=== PATIENT | male | born 1965 | race Hispanic/Latino ===

== ENCOUNTER 2022-02-26 14:35 | Inpatient (IN) | payer SELFPAY ==
[2022-02-26] MEDS ORDERED: Cefepime 2 GM VIAL ONE (18:12)
[2022-02-26] MEDS ORDERED: Morphine 4 MG/ML VIAL ONE (18:39)
[2022-02-26] MEDS ORDERED: Acetaminophen 500 MG TAB ONE (18:39)
[2022-02-26] MEDS ORDERED: Ondansetron PF 4 MG/2 ML Vial ONE (18:39)
[2022-02-26 18:44] LABS: #Eosinphils 0.2 thou/uL (0.0-0.7); #Lymphocytes 1.5 thou/uL (1.20-3.40); #Monocytes 1.1 thou/uL (0.11-0.59); #Neutrophils 10.4 thou/uL (1.40-6.50); %Basophils 0.3 % (0.0-1.0); %Eosinophils 1.2 % (0.0-10.0); %Monocytes 8.1 % (0.0-10.0); %Neutrophils 79.4 % (42.0-75.0); Hemoglobin 14.2 g/dL (14.0-18.0); Mean Corpuscular HGB CONC 33.7 g/dL (32.0-36.0); Mean Corpuscular Hemoglobin 31.1 pg (27.0-31.0); Mean Corpuscular Volume 92.2 fL (78.0-98.0); Mean Platelet Volume 8.2 fL (7.4-10.4); Platelet Count 274 thou/uL (130-400); RBC Distribution Width 11.8 % (11.5-14.5); Red Blood Cell (RBC) Count 4.57 mill/uL (4.70-6.10); White Blood Cell (WBC) Count 13.2 thou/uL (4.8-10.8)
[2022-02-26] MEDS ORDERED: VANCOMYCIN 2 GRAM/500 ML BAG 2 GM in Premix Bag 1 BAG IVPB SCH (18:45)
[2022-02-26 19:06] LABS: ALT (SGPT) 8 U/L (8-55); AST (SGOT) 9 U/L (5-34); Albumin 3.9 g/dL (3.5-5.0); Alkaline Phosphatase 124 U/L (40-110); Anion Gap 16 mmol/L (10-20); BUN (Urea Nitrogen) 10 mg/dL (8.4-25.7); Bilirubin, Total 0.7 mg/dL (0.2-1.2); Calc. Creatinine Clearance 0 mL/min (70-130); Calcium 9.5 mg/dL (7.8-10.44); Carbon Dioxide 27 mmol/L (22-29); Chloride 95 mmol/L (98-107); Estimated GFR 102; Glucose 386 mg/dL (70-105); Potassium 3.9 mmol/L (3.5-5.1); Protein, Total 7.9 g/dL (6.0-8.3); Sodium 134 mmol/L (136-145)
[2022-02-26] MEDS ORDERED: Morphine 4 MG/ML VIAL SLOW IVP PRN (21:20)
[2022-02-26] MEDS ORDERED: Acetaminophen 325 MG TAB PO PRN (21:30)
[2022-02-26] MEDS ORDERED: Sodium Chloride 0.9% 1,000 ML IV SCH (21:30)
[2022-02-26] MEDS ORDERED: Ondansetron PF 4 MG/2 ML Vial IVP PRN (21:30)
[2022-02-26] MEDS ORDERED: Ondansetron ODT 4 MG TAB SL PRN (21:30)
[2022-02-26] MEDS ORDERED: Clindamycin/D5W 600 MG in Premix Bag 1 BAG IVPB SCH (22:00)
[2022-02-26 22:34] VITALS: BMI 23.0
[2022-02-26] MEDS ORDERED: Dextrose 50% Abboject 50 ML SYRINGE SLOW IVP PRN (23:50)
[2022-02-26] MEDS ORDERED: Acetaminophen 650 MG Suppository PR PRN (23:50)
[2022-02-26] MEDS ORDERED: Dextrose 5% in Water 1,000 ML IV PRN (23:50)
[2022-02-27 00:19] LABS: SARS-CoV-2 NAA Rapid Test Not Detected (NotDetected)
[2022-02-27] MEDS ORDERED: Piperacillin/Tazobactam 3.375 GM in Sodium Chloride 0.9% 100 ML IVPB SCH (01:30)
[2022-02-27 01:58] LABS: #Eosinphils 0.2 thou/uL (0.0-0.7); #Lymphocytes 1.5 thou/uL (1.20-3.40); #Monocytes 1.1 thou/uL (0.11-0.59); #Neutrophils 8.1 thou/uL (1.40-6.50); %Basophils 0.4 % (0.0-1.0); %Eosinophils 2.1 % (0.0-10.0); %Lymphocytes 13.8 % (21.0-51.0); %Monocytes 10.1 % (0.0-10.0); %Neutrophils 73.6 % (42.0-75.0); Hemoglobin 12.1 g/dL (14.0-18.0); Mean Corpuscular Hemoglobin 31.3 pg (27.0-31.0); Mean Corpuscular Volume 92.3 fL (78.0-98.0); Mean Platelet Volume 7.8 fL (7.4-10.4); Platelet Count 233 thou/uL (130-400); RBC Distribution Width 11.7 % (11.5-14.5); Red Blood Cell (RBC) Count 3.85 mill/uL (4.70-6.10); White Blood Cell (WBC) Count 11.1 thou/uL (4.8-10.8)
[2022-02-27 02:07] LABS: Hemoglobin A1c Greater than 14.0 % (4.0-6.0)
[2022-02-27 02:44] LABS: Anion Gap 14 mmol/L (10-20); BUN (Urea Nitrogen) 8 mg/dL (8.4-25.7); Calc. Creatinine Clearance 109 mL/min (70-130); Calcium 8.2 mg/dL (7.8-10.44); Carbon Dioxide 23 mmol/L (22-29); Chloride 102 mmol/L (98-107); Estimated GFR 109; Glucose 245 mg/dL (70-105); Potassium 3.5 mmol/L (3.5-5.1); Sodium 135 mmol/L (136-145)
[2022-02-27] MEDS: Sodium Chloride 0.9% 1,000 ML IV SCH ×3 (03:14→19:52)
[2022-02-27] MEDS: Piperacillin/Tazobactam 3.375 GM in Sodium Chloride 0.9% 100 ML IVPB SCH ×3 (05:32→22:56)
[2022-02-27] MEDS ORDERED: Cefepime 2 GM in Sodium Chloride 0.9% 100 ML IVPB SCH (06:00)
[2022-02-27] MEDS ORDERED: VANCOMYCIN 1.25 GM/250 ML BAG IVPB SCH (07:00)
[2022-02-27] MEDS: Vancomycin 1 GM in Premix Bag 1 BAG IVPB SCH ×2 (10:26→19:55)
[2022-02-27] MEDS ORDERED: fentaNYL Citrate/PF 100 MCG/2 ML SYRINGE ONE ×2 (15:12→15:30)
[2022-02-27] MEDS ORDERED: Magnevist 469MG/ML 20 ML VIAL ONE (15:32)
[2022-02-27] MEDS ORDERED: Ondansetron PF 4 MG/2 ML Vial ONE (15:33)
[2022-02-27] MEDS ORDERED: ePHEDrine 50 MG/ML VIAL ONE (15:33)
[2022-02-27] MEDS ORDERED: PROPOFOL 200 MG/20 ML VIAL ONE (15:33)
[2022-02-27] MEDS ORDERED: Bupivacaine/Epinephrine 0.25% 30 ML VIAL ONE (15:55)
[2022-02-27] MEDS ORDERED: Promethazine HCl 25 MG/ML VIAL IVPB PRN (16:23)
[2022-02-27] MEDS ORDERED: Promethazine HCl 25 MG/ML VIAL IM PRN (16:23)
[2022-02-27] MEDS ORDERED: Ondansetron HCl/PF 4 MG/2 ML Vial IVP PRN (16:23)
[2022-02-27] MEDS ORDERED: HYDROmorphone 2 MG/ML VIAL SLOW IVP PRN (16:23)
[2022-02-27] MEDS: HumaLOG 300 UNITS/3 ML VIAL SC PRN (17:50)
[2022-02-27] MEDS ORDERED: HYDROmorphone 0.5 MG/0.5 ML SYRINGE SLOW IVP PRN (20:19)
[2022-02-27] MEDS ORDERED: traMADol HCl 50 MG TAB PO PRN (20:20)
[2022-02-27] MEDS: HYDROcodone/Acetaminophen 7.5/325 mg Tablet PO PRN (20:56)
[2022-02-28] MEDS: HYDROcodone/Acetaminophen 7.5/325 mg Tablet PO PRN ×4 (03:46→20:52)
[2022-02-28] MEDS: Piperacillin/Tazobactam 3.375 GM in Sodium Chloride 0.9% 100 ML IVPB SCH ×3 (05:19→22:44)
[2022-02-28] MEDS: HumaLOG 300 UNITS/3 ML VIAL SC PRN ×2 (07:01→18:20)
[2022-02-28 07:26] LABS: #Eosinphils 0.4 thou/uL (0.0-0.7); #Lymphocytes 1.6 thou/uL (1.20-3.40); #Monocytes 0.9 thou/uL (0.11-0.59); #Neutrophils 8.8 thou/uL (1.40-6.50); %Basophils 0.3 % (0.0-1.0); %Eosinophils 3.5 % (0.0-10.0); %Lymphocytes 13.8 % (21.0-51.0); %Monocytes 7.7 % (0.0-10.0); %Neutrophils 74.6 % (42.0-75.0); Hemoglobin 11.7 g/dL (14.0-18.0); Mean Corpuscular HGB CONC 32.8 g/dL (32.0-36.0); Mean Corpuscular Hemoglobin 30.5 pg (27.0-31.0); Mean Corpuscular Volume 92.9 fL (78.0-98.0); Mean Platelet Volume 7.9 fL (7.4-10.4); Platelet Count 225 thou/uL (130-400); RBC Distribution Width 11.8 % (11.5-14.5); Red Blood Cell (RBC) Count 3.83 mill/uL (4.70-6.10); White Blood Cell (WBC) Count 11.8 thou/uL (4.8-10.8)
[2022-02-28 07:40] LABS: ALT (SGPT) 95 U/L (8-55); AST (SGOT) 117 U/L (5-34); Albumin 2.8 g/dL (3.5-5.0); Alkaline Phosphatase 259 U/L (40-110); Anion Gap 14 mmol/L (10-20); BUN (Urea Nitrogen) 7 mg/dL (8.4-25.7); Bilirubin, Total 0.9 mg/dL (0.2-1.2); Calc. Creatinine Clearance 111 mL/min (70-130); Calcium 8.4 mg/dL (7.8-10.44); Carbon Dioxide 28 mmol/L (22-29); Chloride 101 mmol/L (98-107); Estimated GFR 110; Globulin 3.2 g/dL (2.4-3.5); Glucose 248 mg/dL (70-105); Potassium 3.5 mmol/L (3.5-5.1); Sodium 139 mmol/L (136-145)
[2022-02-28] MEDS: VANCOMYCIN 1.25 GM/250 ML BAG 1.25 GM in Premix Bag 1 BAG IVPB SCH ×2 (11:03→18:21)
[2022-02-28] MEDS: Sodium Chloride 0.9% 1,000 ML IV SCH ×2 (11:07→19:30)
[2022-02-28] MEDS: Vancomycin 1 GM in Premix Bag 1 BAG IVPB SCH (11:07)
[2022-02-28] MEDS ORDERED: Dextrose 5% in Water 1,000 ML IV PRN (12:32)
[2022-02-28] MEDS ORDERED: Dextrose 50% Abboject 50 ML SYRINGE SLOW IVP PRN (12:32)
[2022-02-28 13:10] LABS: Hemoglobin A1c Greater than 14.0 % (4.0-6.0)
[2022-03-01] MEDS: Sodium Chloride 0.9% 1,000 ML IV SCH ×2 (04:00→16:34)
[2022-03-01] MEDS: VANCOMYCIN 1.25 GM/250 ML BAG 1.25 GM in Premix Bag 1 BAG IVPB SCH ×4 (04:00→20:05)
[2022-03-01] MEDS: HYDROcodone/Acetaminophen 7.5/325 mg Tablet PO PRN ×2 (04:32→16:37)
[2022-03-01] MEDS: Piperacillin/Tazobactam 3.375 GM in Sodium Chloride 0.9% 100 ML IVPB SCH ×3 (07:20→22:05)
[2022-03-01] MEDS: HumaLOG 300 UNITS/3 ML VIAL SC PRN ×3 (07:22→20:00)
[2022-03-01] MEDS ORDERED: glipiZIDE 5 MG TAB PO SCH (07:30)
[2022-03-01 08:48] LABS: Vancomycin, Trough 20.8 ug/mL
[2022-03-01 08:50] LABS: Cardiac Risk 4.6 (Less than 4.5)
[2022-03-02] MEDS: HumaLOG 300 UNITS/3 ML VIAL SC PRN ×4 (03:40→22:16)
[2022-03-02] MEDS: VANCOMYCIN 1.25 GM/250 ML BAG 1.25 GM in Premix Bag 1 BAG IVPB SCH ×3 (04:16→19:38)
[2022-03-02] MEDS: HYDROcodone/Acetaminophen 7.5/325 mg Tablet PO PRN (05:49)
[2022-03-02] MEDS: Piperacillin/Tazobactam 3.375 GM in Sodium Chloride 0.9% 100 ML IVPB SCH ×3 (06:19→22:36)
[2022-03-02 07:16] LABS: ALT (SGPT) 81 U/L (8-55); AST (SGOT) 33 U/L (5-34); Albumin 3.1 g/dL (3.5-5.0); Alkaline Phosphatase 400 U/L (40-110); Anion Gap 14 mmol/L (10-20); BUN (Urea Nitrogen) 8 mg/dL (8.4-25.7); Bilirubin, Total 0.5 mg/dL (0.2-1.2); Calc. Creatinine Clearance 94 mL/min (70-130); Calcium 9.3 mg/dL (7.8-10.44); Carbon Dioxide 30 mmol/L (22-29); Chloride 101 mmol/L (98-107); Estimated GFR 104; Globulin 3.7 g/dL (2.4-3.5); Glucose 242 mg/dL (70-105); Potassium 3.3 mmol/L (3.5-5.1); Protein, Total 6.8 g/dL (6.0-8.3); Sodium 142 mmol/L (136-145)
[2022-03-02] MEDS: Sodium Chloride 0.9% 1,000 ML IV SCH ×4 (10:15→22:54)
[2022-03-02] MEDS ORDERED: Ondansetron ODT 4 MG TAB PO PRN (13:39)
[2022-03-02] MEDS ORDERED: Potassium Chloride 20 MEQ TAB PO SCH (15:30)
[2022-03-02] MEDS ORDERED: Polyethylene Glycol 3350 17 GM Packet PO SCH (15:45)
[2022-03-02] MEDS: metFORMIN 500 MG TAB PO SCH (16:40)
[2022-03-02 19:33] LABS: Vancomycin, Trough 18.7 ug/mL
[2022-03-02] MEDS: Ondansetron PF 4 MG/2 ML Vial IVP PRN (22:37)
[2022-03-03] MEDS: Piperacillin/Tazobactam 3.375 GM in Sodium Chloride 0.9% 100 ML IVPB SCH ×3 (05:29→21:18)
[2022-03-03] MEDS: HumaLOG 300 UNITS/3 ML VIAL SC PRN ×2 (05:29→21:36)
[2022-03-03] MEDS: Ondansetron PF 4 MG/2 ML Vial IVP PRN ×3 (07:56→22:41)
[2022-03-03] MEDS: Polyethylene Glycol 3350 17 GM Packet PO SCH (07:57)
[2022-03-03] MEDS: Sodium Chloride 0.9% 1,000 ML IV SCH ×2 (07:57→15:37)
[2022-03-03] MEDS: metFORMIN 500 MG TAB PO SCH ×2 (08:00→17:11)
[2022-03-03] MEDS: HYDROcodone/Acetaminophen 7.5/325 mg Tablet PO PRN (11:04)
[2022-03-03] MEDS ORDERED: Senokot S 8.6-50 MG TAB PO SCH (12:15)
[2022-03-03 13:29] LABS: Hemoglobin A1c Greater than 14.0 % (4.0-6.0)
[2022-03-03] MEDS: Metoclopramide HCl 10 MG/2 ML VIAL IVP PRN (13:52)
[2022-03-03] MEDS: Senokot S 8.6-50 MG TAB PO SCH (21:36)
[2022-03-04] MEDS: Ondansetron PF 4 MG/2 ML Vial IVP SCH ×2 (00:17→04:48)
[2022-03-04] MEDS: Metoclopramide HCl 10 MG/2 ML VIAL IVP PRN ×2 (00:17→12:05)
[2022-03-04] MEDS: Sodium Chloride 0.9% 1,000 ML IV SCH ×3 (02:18→22:13)
[2022-03-04] MEDS: HumaLOG 300 UNITS/3 ML VIAL SC PRN ×4 (04:58→22:13)
[2022-03-04] MEDS ORDERED: Promethazine HCl 12.5 MG in Sodium Chloride 0.9% 50 ML IVPB SCH (06:00)
[2022-03-04] MEDS: Piperacillin/Tazobactam 3.375 GM in Sodium Chloride 0.9% 100 ML IVPB SCH ×3 (06:14→22:13)
[2022-03-04] MEDS: Ondansetron PF 4 MG/2 ML Vial IVP PRN ×3 (10:57→22:14)
[2022-03-04] MEDS: metFORMIN 500 MG TAB PO SCH ×2 (12:14→16:02)
[2022-03-04] MEDS: Senokot S 8.6-50 MG TAB PO SCH ×2 (12:15→20:06)
[2022-03-04] MEDS: Polyethylene Glycol 3350 17 GM Packet PO SCH (12:15)
[2022-03-04] MEDS ORDERED: Insulin Glargine 30 UNITS/0.3 ML VIAL SC SCH (16:30)
[2022-03-04] MEDS ORDERED: Polyethylene Glycol 3350 17 GM Packet PO PRN (17:12)
[2022-03-04 17:34] LABS: #Eosinphils 0.1 thou/uL (0.0-0.7); #Monocytes 0.8 thou/uL (0.11-0.59); #Neutrophils 12.4 thou/uL (1.40-6.50); %Basophils 0.1 % (0.0-1.0); %Eosinophils 0.4 % (0.0-10.0); %Lymphocytes 6.9 % (21.0-51.0); %Monocytes 5.7 % (0.0-10.0); %Neutrophils 86.8 % (42.0-75.0); Hemoglobin 13.5 g/dL (14.0-18.0); Mean Corpuscular HGB CONC 33.3 g/dL (32.0-36.0); Mean Corpuscular Hemoglobin 31.2 pg (27.0-31.0); Mean Corpuscular Volume 93.9 fL (78.0-98.0); Mean Platelet Volume 7.2 fL (7.4-10.4); Platelet Count 379 thou/uL (130-400); RBC Distribution Width 12.1 % (11.5-14.5); Red Blood Cell (RBC) Count 4.31 mill/uL (4.70-6.10); White Blood Cell (WBC) Count 14.3 thou/uL (4.8-10.8)
[2022-03-04 17:51] LABS: Lactic Acid 1.1 mmol/L (0.5-2.2)
[2022-03-04 17:55] LABS: Anion Gap 20 mmol/L (10-20); BUN (Urea Nitrogen) 15 mg/dL (8.4-25.7); Calc. Creatinine Clearance 56 mL/min (70-130); Calcium 8.9 mg/dL (7.8-10.44); Carbon Dioxide 26 mmol/L (22-29); Chloride 102 mmol/L (98-107); Estimated GFR 65; Glucose 300 mg/dL (70-105); Sodium 145 mmol/L (136-145)
[2022-03-04 17:57] LABS: ALT (SGPT) 60 U/L (8-55); AST (SGOT) 30 U/L (5-34); Albumin 3.3 g/dL (3.5-5.0); Alkaline Phosphatase 271 U/L (40-110); Bilirubin, Direct 0.2 mg/dL (0.1-0.3); Bilirubin, Total 0.5 mg/dL (0.2-1.2); Protein, Total 7.1 g/dL (6.0-8.3)
[2022-03-05] MEDS: Metoclopramide HCl 10 MG/2 ML VIAL IVP PRN (04:48)
[2022-03-05] MEDS: Ondansetron PF 4 MG/2 ML Vial IVP PRN ×3 (04:49→20:22)
[2022-03-05] MEDS: Piperacillin/Tazobactam 3.375 GM in Sodium Chloride 0.9% 100 ML IVPB SCH ×3 (04:49→22:33)
[2022-03-05] MEDS: HumaLOG 300 UNITS/3 ML VIAL SC PRN ×3 (04:49→20:21)
[2022-03-05 06:28] LABS: #Eosinphils 0.1 thou/uL (0.0-0.7); #Lymphocytes 1.2 thou/uL (1.20-3.40); #Monocytes 1.1 thou/uL (0.11-0.59); #Neutrophils 11.4 thou/uL (1.40-6.50); %Basophils 0.2 % (0.0-1.0); %Eosinophils 0.6 % (0.0-10.0); %Lymphocytes 8.8 % (21.0-51.0); %Neutrophils 82.3 % (42.0-75.0); Hemoglobin 12.4 g/dL (14.0-18.0); Mean Platelet Volume 7.3 fL (7.4-10.4); Platelet Count 343 thou/uL (130-400); RBC Distribution Width 12.1 % (11.5-14.5); Red Blood Cell (RBC) Count 3.99 mill/uL (4.70-6.10); White Blood Cell (WBC) Count 13.8 thou/uL (4.8-10.8)
[2022-03-05 06:54] LABS: Anion Gap 14 mmol/L (10-20); BUN (Urea Nitrogen) 14 mg/dL (8.4-25.7); Calc. Creatinine Clearance 65 mL/min (70-130); Calcium 8.6 mg/dL (7.8-10.44); Carbon Dioxide 32 mmol/L (22-29); Cardiac Risk 4.6 (Less than 4.5); Chloride 102 mmol/L (98-107); Cholesterol 125 mg/dl (< 200 Desired); Estimated GFR 77; Glucose 252 mg/dL (70-105); HDL Cholesterol 27 mg/dL (>60 Neg Risk); LDL Cholesterol, Calculated 82 mg/dL; Sodium 145 mmol/L (136-145); Triglycerides 80 mg/dL (Less than 150)
[2022-03-05 07:09] LABS: Potassium 2.7 mmol/L (3.5-5.1)
[2022-03-05] MEDS: metFORMIN 500 MG TAB PO SCH ×2 (07:48→16:42)
[2022-03-05] MEDS: Senokot S 8.6-50 MG TAB PO SCH ×2 (07:48→20:16)
[2022-03-05] MEDS: Polyethylene Glycol 3350 17 GM Packet PO SCH (07:48)
[2022-03-05] MEDS: Sodium Chloride 0.9% 1,000 ML IV SCH ×2 (07:49→16:45)
[2022-03-05] MEDS ORDERED: Insulin Glargine 30 UNITS/0.3 ML VIAL SC SCH ×2 (09:00→10:15)
[2022-03-05] MEDS: HYDROcodone/Acetaminophen 7.5/325 mg Tablet PO PRN (10:21)
[2022-03-05] MEDS: Potassium Chloride 20 MEQ TAB PO SCH ×6 (10:27→22:32)
[2022-03-05 15:07] LABS: Potassium 2.7 mmol/L (3.5-5.1)
[2022-03-05] MEDS ORDERED: Potassium Chloride 10 MEQ in Premix Bag 1 BAG IVPB SCH (15:30)
[2022-03-06] MEDS: Metoclopramide HCl 10 MG/2 ML VIAL IVP PRN (00:22)
[2022-03-06] MEDS: Sodium Chloride 0.9% 1,000 ML IV SCH (04:43)
[2022-03-06] MEDS: Piperacillin/Tazobactam 3.375 GM in Sodium Chloride 0.9% 100 ML IVPB SCH ×3 (05:06→22:55)
[2022-03-06 06:24] LABS: #Eosinphils 0.1 thou/uL (0.0-0.7); #Lymphocytes 1.4 thou/uL (1.20-3.40); #Monocytes 0.9 thou/uL (0.11-0.59); #Neutrophils 9.8 thou/uL (1.40-6.50); %Basophils 0.1 % (0.0-1.0); %Eosinophils 1.1 % (0.0-10.0); %Lymphocytes 11.4 % (21.0-51.0); %Monocytes 7.5 % (0.0-10.0); Hemoglobin 12.9 g/dL (14.0-18.0); Mean Corpuscular HGB CONC 32.8 g/dL (32.0-36.0); Mean Corpuscular Hemoglobin 30.8 pg (27.0-31.0); Mean Corpuscular Volume 93.9 fL (78.0-98.0); Mean Platelet Volume 7.5 fL (7.4-10.4); Platelet Count 349 thou/uL (130-400); RBC Distribution Width 11.9 % (11.5-14.5); White Blood Cell (WBC) Count 12.3 thou/uL (4.8-10.8)
[2022-03-06 06:47] LABS: Anion Gap 12 mmol/L (10-20); BUN (Urea Nitrogen) 11 mg/dL (8.4-25.7); Calc. Creatinine Clearance 75 mL/min (70-130); Calcium 8.7 mg/dL (7.8-10.44); Carbon Dioxide 34 mmol/L (22-29); Chloride 101 mmol/L (98-107); Estimated GFR 92; Glucose 193 mg/dL (70-105); Sodium 144 mmol/L (136-145)
[2022-03-06 06:50] LABS: Potassium 2.8 mmol/L (3.5-5.1)
[2022-03-06] MEDS ORDERED: Potassium Chloride 10 MEQ in Premix Bag 1 BAG IVPB SCH ×3 (09:00→16:45)
[2022-03-06] MEDS ORDERED: Morphine 2 MG/ML VIAL ONE (10:49)
[2022-03-06] MEDS: metFORMIN 500 MG TAB PO SCH ×2 (11:47→16:31)
[2022-03-06] MEDS: Senokot S 8.6-50 MG TAB PO SCH ×2 (11:47→19:56)
[2022-03-06] MEDS: Insulin Glargine 30 UNITS/0.3 ML VIAL SC SCH (11:48)
[2022-03-06] MEDS: Polyethylene Glycol 3350 17 GM Packet PO SCH (11:54)
[2022-03-06] MEDS: Potassium Bicarbonate/Cit Ac 20 MEQ TAB PO SCH ×2 (11:58→13:19)
[2022-03-06] MEDS: Potassium Chloride 20 MEQ in Lactated Ringer's 1,000 ML IV SCH ×2 (13:23→19:56)
[2022-03-06 14:01] LABS: Anion Gap 14 mmol/L (10-20); BUN (Urea Nitrogen) 10 mg/dL (8.4-25.7); Calc. Creatinine Clearance 67 mL/min (70-130); Calcium 8.9 mg/dL (7.8-10.44); Carbon Dioxide 35 mmol/L (22-29); Chloride 97 mmol/L (98-107); Estimated GFR 80; Glucose 234 mg/dL (70-105); Sodium 143 mmol/L (136-145)
[2022-03-06 14:08] LABS: Potassium 2.8 mmol/L (3.5-5.1)
[2022-03-06 15:41] LABS: Anion Gap 13 mmol/L (10-20); BUN (Urea Nitrogen) 10 mg/dL (8.4-25.7); Calc. Creatinine Clearance 68 mL/min (70-130); Calcium 8.7 mg/dL (7.8-10.44); Carbon Dioxide 34 mmol/L (22-29); Chloride 98 mmol/L (98-107); Estimated GFR 82; Glucose 214 mg/dL (70-105); Sodium 142 mmol/L (136-145)
[2022-03-06] MEDS ORDERED: Bupivacaine HCl 0.5%/Epinephrine 1:200,000/PF 30 ml Vial ONE (15:58)
[2022-03-06] MEDS ORDERED: Bupivacaine/Epinephrine 0.25% 30 ML VIAL ONE (15:58)
[2022-03-06] MEDS ORDERED: fentaNYL Citrate/PF 100 MCG/2 ML SYRINGE ONE ×2 (16:21→18:23)
[2022-03-06] MEDS ORDERED: Ondansetron PF 4 MG/2 ML Vial ONE (16:36)
[2022-03-06] MEDS ORDERED: Lidocaine 1% MPF 2 ML VIAL ONE (16:36)
[2022-03-06] MEDS ORDERED: PROPOFOL 200 MG/20 ML VIAL ONE (16:36)
[2022-03-06] MEDS ORDERED: NEOSTIGMINE 3 MG/3 ML SYR 3 MG/3 ML SYRINGE ONE (16:36)
[2022-03-06] MEDS ORDERED: Rocuronium Bromide 10 MG/ML (10ML VIAL) ONE (16:36)
[2022-03-06] MEDS ORDERED: Succinylcholine 200 MG/10 ml SYRINGE FS ONE (16:36)
[2022-03-06] MEDS ORDERED: Metoclopramide HCl 10 MG/2 ML VIAL ONE (16:36)
[2022-03-06] MEDS ORDERED: Glycopyrrolate 0.2 MG/ML 5 ML SYRINGE ONE (16:36)
[2022-03-06] MEDS ORDERED: ePHEDrine 50 MG/ML VIAL ONE (16:36)
[2022-03-06] MEDS ORDERED: Ibuprofen 600 MG TAB PO PRN (17:43)
[2022-03-06] MEDS ORDERED: Acetaminophen 500 MG TAB PO PRN (17:43)
[2022-03-06] MEDS ORDERED: Ketorolac Tromethamine 30 MG/ML VIAL IVP PRN (17:43)
[2022-03-06] MEDS ORDERED: Acetaminophen 500 MG TAB PO SCH (17:45)
[2022-03-06] MEDS ORDERED: Ketorolac Tromethamine 30 MG/ML VIAL IVP SCH (17:45)
[2022-03-06] MEDS ORDERED: Promethazine HCl 25 MG/ML VIAL IM PRN (18:00)
[2022-03-06] MEDS ORDERED: Promethazine HCl 25 MG/ML VIAL IVPB PRN (18:00)
[2022-03-06] MEDS ORDERED: Ondansetron HCl/PF 4 MG/2 ML Vial IVP PRN (18:00)
[2022-03-06] MEDS ORDERED: Ketorolac Tromethamine 30 MG/ML VIAL ONE (18:06)
[2022-03-06] MEDS: Lactated Ringer's 1,000 ML IV SCH (19:53)
[2022-03-06] MEDS ORDERED: hydrALAZINE 20 MG/ML VIAL SLOW IVP SCH (20:00)
[2022-03-06] MEDS: Enoxaparin Sodium 40 MG/0.4 ML SYRINGE SC SCH (20:57)
[2022-03-07] MEDS: Ondansetron PF 4 MG/2 ML Vial IVP PRN ×2 (01:15→08:44)
[2022-03-07] MEDS: Lactated Ringer's 1,000 ML IV SCH ×3 (03:52→20:35)
[2022-03-07] MEDS: Metoclopramide HCl 10 MG/2 ML VIAL IVP PRN (03:53)
[2022-03-07] MEDS: Piperacillin/Tazobactam 3.375 GM in Sodium Chloride 0.9% 100 ML IVPB SCH (05:14)
[2022-03-07 06:11] LABS: #Lymphocytes 1.2 thou/uL (1.20-3.40); #Neutrophils 9.8 thou/uL (1.40-6.50); %Basophils 0.2 % (0.0-1.0); %Eosinophils 0.4 % (0.0-10.0); %Lymphocytes 10.1 % (21.0-51.0); %Monocytes 7.9 % (0.0-10.0); %Neutrophils 81.5 % (42.0-75.0); Hemoglobin 12.7 g/dL (14.0-18.0); Mean Corpuscular HGB CONC 32.6 g/dL (32.0-36.0); Mean Corpuscular Hemoglobin 30.5 pg (27.0-31.0); Mean Corpuscular Volume 93.6 fL (78.0-98.0); Mean Platelet Volume 7.4 fL (7.4-10.4); Platelet Count 327 thou/uL (130-400); Red Blood Cell (RBC) Count 4.16 mill/uL (4.70-6.10); White Blood Cell (WBC) Count 12.1 thou/uL (4.8-10.8)
[2022-03-07 06:38] LABS: ALT (SGPT) 67 U/L (8-55); AST (SGOT) 53 U/L (5-34); Albumin 3.2 g/dL (3.5-5.0); Alkaline Phosphatase 212 U/L (40-110); Anion Gap 12 mmol/L (10-20); BUN (Urea Nitrogen) 10 mg/dL (8.4-25.7); Bilirubin, Total 0.7 mg/dL (0.2-1.2); Calc. Creatinine Clearance 76 mL/min (70-130); Calcium 8.7 mg/dL (7.8-10.44); Carbon Dioxide 35 mmol/L (22-29); Chloride 98 mmol/L (98-107); Estimated GFR 93; Globulin 3.2 g/dL (2.4-3.5); Glucose 158 mg/dL (70-105); Protein, Total 6.4 g/dL (6.0-8.3); Sodium 142 mmol/L (136-145)
[2022-03-07 06:42] LABS: Potassium 2.7 mmol/L (3.5-5.1)
[2022-03-07] MEDS ORDERED: Electrolyte Replacement Protocol 1 EACH FS SCH (07:00)
[2022-03-07 07:12] LABS: Magnesium 1.7 mg/dL (1.6-2.6)
[2022-03-07] MEDS ORDERED: Potassium Chloride 10 MEQ in Premix Bag 1 BAG IVPB SCH ×2 (07:45→18:30)
[2022-03-07] MEDS: Senokot S 8.6-50 MG TAB PO SCH ×2 (08:39→20:34)
[2022-03-07] MEDS: Amoxicillin/Potassium Clav 500 MG TAB PO SCH ×2 (08:39→20:34)
[2022-03-07] MEDS: metFORMIN 500 MG TAB PO SCH ×2 (08:39→17:11)
[2022-03-07] MEDS: Insulin Glargine 30 UNITS/0.3 ML VIAL SC SCH (08:40)
[2022-03-07] MEDS: Polyethylene Glycol 3350 17 GM Packet PO SCH (08:40)
[2022-03-07] MEDS: Potassium Chloride 20 MEQ TAB PO SCH ×2 (08:47→11:58)
[2022-03-07] MEDS ORDERED: Magnesium 2 GM/50 ML(in water) 2 GM in Premix Bag 1 BAG IVPB SCH (09:00)
[2022-03-07] MEDS: Potassium Chloride 10 MEQ in Premix Bag 1 BAG IVPB SCH ×3 (10:45→16:19)
[2022-03-07] MEDS ORDERED: Ondansetron ODT 4 MG TAB PO PRN (11:07)
[2022-03-07] MEDS ORDERED: Ondansetron ODT 8 MG TAB PO PRN (11:07)
[2022-03-07] MEDS: Scopolamine 1.5 mg/72 hour Patch TD SCH (14:12)
[2022-03-07] MEDS ORDERED: Insulin Glargine 30 UNITS/0.3 ML VIAL SC SCH (14:15)
[2022-03-07] MEDS ORDERED: Cosyntropin 250 MCG VIAL SLOW IVP SCH (14:31)
[2022-03-07 15:16] LABS: Troponin I 0.019 ng/mL (< 0.028)
[2022-03-07] MEDS ORDERED: hydrALAZINE 20 MG/ML VIAL SLOW IVP PRN (20:12)
[2022-03-07] MEDS: Enoxaparin Sodium 40 MG/0.4 ML SYRINGE SC SCH (20:34)
[2022-03-07] MEDS: Ondansetron ODT 8 MG TAB SL PRN (20:39)
[2022-03-08] MEDS: Metoclopramide HCl 10 MG/2 ML VIAL IVP PRN ×3 (04:45→20:13)
[2022-03-08 07:07] LABS: #Eosinphils 0.1 thou/uL (0.0-0.7); #Lymphocytes 1.7 thou/uL (1.20-3.40); #Monocytes 0.9 thou/uL (0.11-0.59); #Neutrophils 10.3 thou/uL (1.40-6.50); %Basophils 0.1 % (0.0-1.0); %Eosinophils 0.9 % (0.0-10.0); %Lymphocytes 12.9 % (21.0-51.0); %Monocytes 6.6 % (0.0-10.0); %Neutrophils 79.6 % (42.0-75.0); Hemoglobin 12.8 g/dL (14.0-18.0); Mean Corpuscular HGB CONC 32.9 g/dL (32.0-36.0); Mean Corpuscular Hemoglobin 30.7 pg (27.0-31.0); Mean Corpuscular Volume 93.2 fL (78.0-98.0); Mean Platelet Volume 7.3 fL (7.4-10.4); Platelet Count 329 thou/uL (130-400); RBC Distribution Width 11.9 % (11.5-14.5); Red Blood Cell (RBC) Count 4.19 mill/uL (4.70-6.10)
[2022-03-08 07:26] LABS: Anion Gap 12 mmol/L (10-20); BUN (Urea Nitrogen) 8 mg/dL (8.4-25.7); Calc. Creatinine Clearance 79 mL/min (70-130); Calcium 8.8 mg/dL (7.8-10.44); Carbon Dioxide 34 mmol/L (22-29); Chloride 99 mmol/L (98-107); Estimated GFR 98; Glucose 126 mg/dL (70-105); Magnesium 1.9 mg/dL (1.6-2.6); Phosphorus 2.3 mg/dL (2.3-4.7); Sodium 142 mmol/L (136-145)
[2022-03-08 07:31] LABS: Potassium 2.9 mmol/L (3.5-5.1)
[2022-03-08] MEDS: Ondansetron ODT 8 MG TAB SL PRN (07:48)
[2022-03-08] MEDS ORDERED: Magnesium 2 GM/50 ML(in water) 2 GM in Premix Bag 1 BAG IVPB SCH (08:00)
[2022-03-08] MEDS ORDERED: LACTINEX 1 TAB PO SCH (09:00)
[2022-03-08] MEDS: Potassium Chloride 20 MEQ in Premix Bag 1 BAG IVPB SCH ×4 (09:05→17:10)
[2022-03-08] MEDS: metFORMIN 500 MG TAB PO SCH ×2 (09:07→17:10)
[2022-03-08] MEDS: Senokot S 8.6-50 MG TAB PO SCH ×2 (09:07→20:19)
[2022-03-08] MEDS: Amoxicillin/Potassium Clav 500 MG TAB PO SCH ×2 (09:07→20:18)
[2022-03-08] MEDS: Polyethylene Glycol 3350 17 GM Packet PO SCH (09:08)
[2022-03-08] MEDS: Insulin Glargine 30 UNITS/0.3 ML VIAL SC SCH (09:08)
[2022-03-08] MEDS: Lactated Ringer's 1,000 ML IV SCH ×2 (09:08→18:37)
[2022-03-08] MEDS: Floranex 1 GM Packet PO SCH (09:12)
[2022-03-08 15:12] LABS: Potassium 3.3 mmol/L (3.5-5.1)
[2022-03-08] MEDS: Potassium Bicarbonate/Cit Ac 20 MEQ TAB PO SCH ×2 (18:17→20:20)
[2022-03-08] MEDS: Enoxaparin Sodium 40 MG/0.4 ML SYRINGE SC SCH (20:19)
[2022-03-08] MEDS: Pantoprazole 40 MG VIAL IVP SCH (20:23)
[2022-03-09] MEDS: Lactated Ringer's 1,000 ML IV SCH ×2 (04:14→15:54)
[2022-03-09 05:34] LABS: SARS-CoV-2 NAA Rapid Test Not Detected (NotDetected)
[2022-03-09 05:59] LABS: #Eosinphils 0.3 thou/uL (0.0-0.7); #Lymphocytes 1.8 thou/uL (1.20-3.40); #Monocytes 0.8 thou/uL (0.11-0.59); #Neutrophils 8.2 thou/uL (1.40-6.50); %Basophils 0.3 % (0.0-1.0); %Eosinophils 2.6 % (0.0-10.0); %Lymphocytes 16.1 % (21.0-51.0); %Monocytes 7.2 % (0.0-10.0); %Neutrophils 73.8 % (42.0-75.0); Hemoglobin 12.9 g/dL (14.0-18.0); Mean Corpuscular HGB CONC 32.3 g/dL (32.0-36.0); Mean Corpuscular Hemoglobin 30.2 pg (27.0-31.0); Mean Corpuscular Volume 93.5 fL (78.0-98.0); Mean Platelet Volume 7.6 fL (7.4-10.4); Platelet Count 337 thou/uL (130-400); RBC Distribution Width 12.1 % (11.5-14.5); Red Blood Cell (RBC) Count 4.27 mill/uL (4.70-6.10); White Blood Cell (WBC) Count 11.1 thou/uL (4.8-10.8)
[2022-03-09 06:20] LABS: Anion Gap 14 mmol/L (10-20); BUN (Urea Nitrogen) 11 mg/dL (8.4-25.7); Calc. Creatinine Clearance 76 mL/min (70-130); Calcium 9.2 mg/dL (7.8-10.44); Carbon Dioxide 32 mmol/L (22-29); Chloride 98 mmol/L (98-107); Estimated GFR 93; Glucose 129 mg/dL (70-105); Magnesium 2.1 mg/dL (1.6-2.6); Phosphorus 2.5 mg/dL (2.3-4.7); Sodium 141 mmol/L (136-145)
[2022-03-09] MEDS: metFORMIN 500 MG TAB PO SCH ×2 (08:14→18:10)
[2022-03-09] MEDS ORDERED: Fentanyl 100 MCG/2 ML VIAL ONE (09:37)
[2022-03-09] MEDS ORDERED: PROPOFOL 200 MG/20 ML VIAL ONE (11:28)
[2022-03-09] MEDS ORDERED: Promethazine HCl 25 MG/ML VIAL IVPB PRN (11:31)
[2022-03-09] MEDS ORDERED: Ondansetron HCl/PF 4 MG/2 ML Vial IVP PRN (11:31)
[2022-03-09] MEDS ORDERED: Promethazine HCl 25 MG/ML VIAL IM PRN (11:31)
[2022-03-09] MEDS: Floranex 1 GM Packet PO SCH (11:34)
[2022-03-09] MEDS: Pantoprazole 40 MG VIAL IVP SCH ×2 (11:34→20:27)
[2022-03-09] MEDS: Amoxicillin/Potassium Clav 500 MG TAB PO SCH ×2 (11:34→20:27)
[2022-03-09] MEDS: Insulin Glargine 30 UNITS/0.3 ML VIAL SC SCH (11:34)
[2022-03-09] MEDS: Polyethylene Glycol 3350 17 GM Packet PO SCH (11:35)
[2022-03-09] MEDS: Senokot S 8.6-50 MG TAB PO SCH ×2 (11:35→20:27)
[2022-03-09] MEDS: Potassium Chloride 20 MEQ in Premix Bag 1 BAG IVPB SCH ×4 (12:42→20:31)
[2022-03-09] MEDS ORDERED: Lidocaine 2% Viscous Solution 20 ML, Aluminum & Magnesium Hydroxide 30 ML, Donnatal Eli... SSW SCH (14:30)
[2022-03-09] MEDS: Enoxaparin Sodium 40 MG/0.4 ML SYRINGE SC SCH (20:28)
[2022-03-10 07:27] LABS: #Eosinphils 0.4 thou/uL (0.0-0.7); #Lymphocytes 1.3 thou/uL (1.20-3.40); #Monocytes 0.7 thou/uL (0.11-0.59); #Neutrophils 7.9 thou/uL (1.40-6.50); %Basophils 0.2 % (0.0-1.0); %Eosinophils 3.8 % (0.0-10.0); %Lymphocytes 12.7 % (21.0-51.0); %Monocytes 7.2 % (0.0-10.0); %Neutrophils 76.2 % (42.0-75.0); Hemoglobin 13.2 g/dL (14.0-18.0); Mean Corpuscular HGB CONC 33.2 g/dL (32.0-36.0); Mean Corpuscular Hemoglobin 31.2 pg (27.0-31.0); Mean Corpuscular Volume 93.7 fL (78.0-98.0); Mean Platelet Volume 7.7 fL (7.4-10.4); Platelet Count 322 thou/uL (130-400); Red Blood Cell (RBC) Count 4.24 mill/uL (4.70-6.10); White Blood Cell (WBC) Count 10.3 thou/uL (4.8-10.8)
[2022-03-10 07:39] LABS: Anion Gap 13 mmol/L (10-20); BUN (Urea Nitrogen) 12 mg/dL (8.4-25.7); Calc. Creatinine Clearance 73 mL/min (70-130); Calcium 9.2 mg/dL (7.8-10.44); Carbon Dioxide 29 mmol/L (22-29); Chloride 101 mmol/L (98-107); Estimated GFR 89; Glucose 175 mg/dL (70-105); Magnesium 1.9 mg/dL (1.6-2.6); Phosphorus 2.7 mg/dL (2.3-4.7); Potassium 3.4 mmol/L (3.5-5.1); Sodium 140 mmol/L (136-145)
[2022-03-10] MEDS: Amoxicillin/Potassium Clav 500 MG TAB PO SCH ×2 (08:37→20:13)
[2022-03-10] MEDS: Polyethylene Glycol 3350 17 GM Packet PO SCH (08:37)
[2022-03-10] MEDS: Senokot S 8.6-50 MG TAB PO SCH ×2 (08:38→20:13)
[2022-03-10] MEDS: Insulin Glargine 30 UNITS/0.3 ML VIAL SC SCH ×2 (08:38→09:02)
[2022-03-10] MEDS: metFORMIN 500 MG TAB PO SCH ×2 (08:38→17:58)
[2022-03-10] MEDS: Pantoprazole 40 MG VIAL IVP SCH (08:38)
[2022-03-10] MEDS: Floranex 1 GM Packet PO SCH (08:38)
[2022-03-10] MEDS ORDERED: Potassium Chloride 20 MEQ TAB PO SCH (09:00)
[2022-03-10] MEDS ORDERED: Magnesium 2 GM/50 ML(in water) 2 GM in Premix Bag 1 BAG IVPB SCH (09:00)
[2022-03-10] MEDS: HumaLOG 300 UNITS/3 ML VIAL SC PRN ×2 (11:55→17:59)
[2022-03-10] MEDS: Ondansetron PF 4 MG/2 ML Vial IVP PRN (11:55)
[2022-03-10] MEDS: Scopolamine 1.5 mg/72 hour Patch TD SCH (14:20)
[2022-03-10] MEDS ORDERED: Insulin Glargine 30 UNITS/0.3 ML VIAL SC SCH (15:30)
[2022-03-10] MEDS: Enoxaparin Sodium 40 MG/0.4 ML SYRINGE SC SCH (20:12)
[2022-03-11 06:25] LABS: #Basophils 0.1 thou/uL (0.0-0.2); #Eosinphils 0.6 thou/uL (0.0-0.7); #Lymphocytes 1.4 thou/uL (1.20-3.40); #Monocytes 0.8 thou/uL (0.11-0.59); #Neutrophils 9.1 thou/uL (1.40-6.50); %Basophils 0.5 % (0.0-1.0); %Lymphocytes 11.7 % (21.0-51.0); %Neutrophils 75.8 % (42.0-75.0); Hemoglobin 12.7 g/dL (14.0-18.0); Mean Corpuscular Hemoglobin 31.8 pg (27.0-31.0); Mean Corpuscular Volume 93.5 fL (78.0-98.0); Mean Platelet Volume 7.8 fL (7.4-10.4); Platelet Count 314 thou/uL (130-400)
[2022-03-11 06:45] LABS: Anion Gap 14 mmol/L (10-20); BUN (Urea Nitrogen) 11 mg/dL (8.4-25.7); Calc. Creatinine Clearance 66 mL/min (70-130); Calcium 9.1 mg/dL (7.8-10.44); Carbon Dioxide 31 mmol/L (22-29); Chloride 99 mmol/L (98-107); Estimated GFR 79; Glucose 161 mg/dL (70-105); Phosphorus 2.9 mg/dL (2.3-4.7); Potassium 3.6 mmol/L (3.5-5.1); Sodium 140 mmol/L (136-145)
[2022-03-11 07:50] VITALS: BP 162/85; TEMP 98.2
[2022-03-11] MEDS ORDERED: Magnesium 2 GM/50 ML(in water) 2 GM in Premix Bag 1 BAG IVPB SCH (08:00)
[2022-03-11] MEDS: Amoxicillin/Potassium Clav 500 MG TAB PO SCH (08:38)
[2022-03-11] MEDS: metFORMIN 500 MG TAB PO SCH (08:38)
[2022-03-11] MEDS: Polyethylene Glycol 3350 17 GM Packet PO SCH (08:38)
[2022-03-11] MEDS: Senokot S 8.6-50 MG TAB PO SCH (08:38)
[2022-03-11] MEDS: Floranex 1 GM Packet PO SCH (08:38)
[2022-03-11] MEDS ORDERED: Insulin Glargine 30 UNITS/0.3 ML VIAL SC SCH (09:00)
[2022-03-11] MEDS: HumaLOG 300 UNITS/3 ML VIAL SC PRN (11:54)
== END 2022-03-11 15:22 | disposition home or self-care (01) | DRG 854 ==
LOC: ERS 14:35 → EDBD 19:57 → T4-B 19:57
PROVIDERS: ADMIT Internal Medicine; ATTEND Internal Medicine
PROC: 3E03329 Introduction of Other Anti-infective into Peripheral Vein, Percutaneous Approach (ICD-10-PCS; 2022-02-26)
PROC: 0Y6M0ZF Detachment at Right Foot, Partial 5th Ray, Open Approach (ICD-10-PCS; principal; 2022-02-27)
PROC: 0FT44ZZ Resection of Gallbladder, Percutaneous Endoscopic Approach (ICD-10-PCS; 2022-03-06)
PROC: 0DJ08ZZ Inspection of Upper Intestinal Tract, Via Natural or Artificial Opening Endoscopic (ICD-10-PCS; 2022-03-09)
DX: A40.1 Sepsis due to streptococcus, group B (principal); E11.52 Type 2 diabetes mellitus with diabetic peripheral angiopathy with gangrene; L03.115 Cellulitis of right lower limb; M86.171 Other acute osteomyelitis, right ankle and foot; K80.00 Calculus of gallbladder with acute cholecystitis without obstruction; Z20.822 Contact with and (suspected) exposure to COVID-19; F17.210 Nicotine dependence, cigarettes, uncomplicated; E11.69 Type 2 diabetes mellitus with other specified complication; E11.628 Type 2 diabetes mellitus with other skin complications; E11.65 Type 2 diabetes mellitus with hyperglycemia; K21.00 Gastro-esophageal reflux disease with esophagitis, without bleeding; K44.9 Diaphragmatic hernia without obstruction or gangrene; K59.00 Constipation, unspecified; Z91.11 Patient's noncompliance with dietary regimen; Z91.14 Patient's other noncompliance with medication regimen
CPT/HCPCS: 36415; 36416; 71045; 74018; 76705; 78227; 80048; 80053; 80061; 80076; 80202; 80400; 82010; 82533; 83036; 83605; 83690; 83735; 84100; 84484; 85025; 87040; 87070; 87076; 87077; 87186; 87205; 87811; 88304; 88305; 88311; 93005; 93923; 96365; 96366; 96367; 96375; 97139; A9537; A9579; C1713; C9113; J0360; J0692; J0834; J1650; J1815; J1885; J2270; J2405; J2543; J2550; J2704; J2765; J3010; J3370; J3475; J3480; J3490; J7050; J7120; Q0162; U0002; U0003; U0005